=== PATIENT | male | born 1940 | race Caucasian/White ===

== ENCOUNTER 2018-09-10 09:17 | Inpatient (IN) ==
[2018-09-10] MEDS ORDERED: D5 1/2 NS 1000 ML 1,000 ML IV ONE (09:57)
[2018-09-10] MEDS: D5 1/2 NS 1000 ML 1,000 ML IV SCH ×3 (10:27→21:05)
[2018-09-10] MEDS ORDERED: DILAUDID INJ IVP PRN (11:24)
[2018-09-10 11:48] LABS: BASOPHILS # (AUTO) 0.1 X10^3/uL (0.0-0.1); BASOPHILS % (AUTO) 0.7 % (0.2-1.0); EOSINOPHILS % (AUTO) 0.1 % (0.9-2.9); HEMATOCRIT 29.8 % (42.0-54.0); HEMOGLOBIN 9.8 g/dL (13.5-18.0); LYMPHOCYTES # (AUTO) 1.1 X10^3/uL (1.3-2.9); LYMPHOCYTES % (AUTO) 9.4 % (21.0-51.0); MEAN CORPUSCULAR HEMOGLOBIN 27.8 pg (27.0-34.0); MEAN CORPUSCULAR HGB CONC 33.1 g/dL (33.0-35.0); MEAN CORPUSCULAR VOLUME 84.1 fL (80.0-100.0); MEAN PLATELET VOLUME 7.3 fL (7.4-11.0); MONOCYTES # (AUTO) 0.6 x10^3/uL (0.3-0.8); NEUTROPHILS # (AUTO) 9.5 x10^3/uL (2.2-4.8); NEUTROPHILS % (AUTO) 84.8 % (42.0-75.0); PLATELET COUNT 330 X10^3/uL (150.0-450.0); RED BLOOD COUNT 3.54 X10^6/uL (4.7-6.0); RED CELL DISTRIBUTION WIDTH 13.8 % (11.6-16.5); WHITE BLOOD COUNT 11.2 X10^3/uL (3.6-10.0)
[2018-09-10 12:02] VITALS: BMI 27.3
[2018-09-10] MEDS ORDERED: FLUVIRIN IM ONE (12:02)
[2018-09-10] MEDS ORDERED: PREVNAR 13 IM ONE (12:02)
[2018-09-10 12:14] LABS: ALANINE AMINOTRANSFERASE 32 Units/L (12-78); ALBUMIN 2.1 g/dL (3.4-5.0); ALKALINE PHOSPHATASE 207 Units/L (46-116); AMYLASE 25 Units/L (25-115); ASPARTATE AMINO TRANSFERASE 22 Units/L (15-37); BLOOD UREA NITROGEN 14 mg/dL (7-18); CALCIUM 8.1 mg/dL (8.5-10.1); CARBON DIOXIDE 25.9 mmol/L (21-32); CHLORIDE 100 mmol/L (98-107); COR CA(FOR HYPOALB) 9.6 mg/dL (8.5-10.1); COR NA(FOR HYPERGLY) 136 mmol/L (136-145); CREATININE 0.69 mg/dL (0.70-1.30); LIPASE 87 Units/L (73-393); SODIUM 135 mmol/L (136-145); TOTAL PROTEIN 7.7 g/dL (6.4-8.2); eGFR NON BLACK RACES > 60 (>60)
[2018-09-10] MEDS ORDERED: NS 100 ML IV + SPIKE MINIBAG* 100 ML IV ONE ×2 (12:52→21:00)
[2018-09-10] MEDS: FLAGYL IV PREMIX 500 MG BAG 500 MG/100 ML BAG IV SCH ×2 (12:56→20:56)
[2018-09-10] MEDS: PROTONIX INJ 40 MG VIAL IVP SCH (12:56)
[2018-09-10] MEDS: ZOSYN VIAL 3.375 GRAMS IV SCH ×2 (14:17→21:09)
--- NOTE | 2018-09-10 21:17 | CT ---
HISTORY: Liver abscess. Study: CT abdomen with contrast Comparison: CT abdomen/pelvis dated August 06, 2018. Technique: Multiple axial images of the abdomen and pelvis were obtained from the lung bases to the pubic symphysis after the administration of IV contrast. Dose reduction techniques including Automated Exposure Control (AEC) and adjustment of mA and kV were utilized. Findings: The visualized portions of the lung bases are unremarkable. Small hiatal hernia. Stable appearance of a 10.0 x 12.5 x 10.6 cm multi-septated cystic lesion that is centered within the left hepatic lobe. Extensive soft tissue stranding is seen about the liver edge with traces of free fluid. No obvious areas of arterial or delayed enhancement. Again, this likely represents a liver abscess. Remaining liver is unremarkable. The portal vein is patent. The visualized gallbladder, spleen, pancreas, adrenals, and kidneys appear normal. No obvious free air or pathologic lymphadenopathy. The visualized large and small bowel appear unchanged given technique. Vascular calcifications without evidence of aneurysmal dilatation. Degenerative changes of the spine. No aggressive osseous lesions. IMPRESSION: Stable appearance of a 12.5 cm complex left liver lesion likely representing a liver abscess. Reported By:
[2018-09-11] MEDS: FLAGYL IV PREMIX 500 MG BAG 500 MG/100 ML BAG IV SCH ×3 (03:00→20:13)
[2018-09-11] MEDS ORDERED: NS 100 ML IV + SPIKE MINIBAG* 100 ML IV ONE ×3 (04:51→20:12)
[2018-09-11 05:16] LABS: BASOPHILS # (AUTO) 0.1 X10^3/uL (0.0-0.1); BASOPHILS % (AUTO) 0.4 % (0.2-1.0); EOSINOPHILS # (AUTO) 0.1 x10^3/uL (0.0-0.2); EOSINOPHILS % (AUTO) 0.4 % (0.9-2.9); HEMATOCRIT 28.7 % (42.0-54.0); HEMOGLOBIN 9.7 g/dL (13.5-18.0); LYMPHOCYTES # (AUTO) 1.6 X10^3/uL (1.3-2.9); LYMPHOCYTES % (AUTO) 11.7 % (21.0-51.0); MEAN CORPUSCULAR HGB CONC 33.7 g/dL (33.0-35.0); MEAN CORPUSCULAR VOLUME 83.2 fL (80.0-100.0); MEAN PLATELET VOLUME 7.4 fL (7.4-11.0); MONOCYTES # (AUTO) 0.8 x10^3/uL (0.3-0.8); NEUTROPHILS % (AUTO) 81.5 % (42.0-75.0); PLATELET COUNT 344 X10^3/uL (150.0-450.0); RED BLOOD COUNT 3.45 X10^6/uL (4.7-6.0); RED CELL DISTRIBUTION WIDTH 13.7 % (11.6-16.5); WHITE BLOOD COUNT 13.6 X10^3/uL (3.6-10.0)
[2018-09-11] MEDS: D5 1/2 NS 1000 ML 1,000 ML IV SCH ×3 (05:24→20:13)
[2018-09-11] MEDS: ZOSYN VIAL 3.375 GRAMS IV SCH ×3 (05:24→21:49)
[2018-09-11 05:30] LABS: ALANINE AMINOTRANSFERASE 28 Units/L (12-78); ALBUMIN 1.8 g/dL (3.4-5.0); ALKALINE PHOSPHATASE 185 Units/L (46-116); ASPARTATE AMINO TRANSFERASE 21 Units/L (15-37); BLOOD UREA NITROGEN 9 mg/dL (7-18); CALCIUM 7.7 mg/dL (8.5-10.1); CARBON DIOXIDE 25.6 mmol/L (21-32); CHLORIDE 104 mmol/L (98-107); COR CA(FOR HYPOALB) 9.5 mg/dL (8.5-10.1); COR NA(FOR HYPERGLY) 139 mmol/L (136-145); SODIUM 139 mmol/L (136-145); eGFR NON BLACK RACES > 60 (>60)
[2018-09-11] MEDS ORDERED: XYLOCAINE 1 % (PLAIN) ONE (08:39)
[2018-09-11] MEDS: PROTONIX INJ 40 MG VIAL IVP SCH (09:30)
[2018-09-11] MEDS ORDERED: K-RIDER 10 MEQ/NS 100 ML 10 MEQ/100 ML BAG IV PRN (10:14)
[2018-09-11] MEDS ORDERED: MICRO K EXTEN CAP 10 MEQ PO PRN (10:14)
[2018-09-11] MEDS ORDERED: POTASSIUM CHL 60 MEQ/NS 0.45% 500 ML IV PRN (10:14)
[2018-09-11] MEDS ORDERED: KLOR-CON PO PRN (10:14)
[2018-09-11] MEDS ORDERED: POTASSIUM CHL 40 MEQ/NS 0.45% 500 ML IV PRN (10:14)
[2018-09-11] MEDS ORDERED: POTASSIUM CHLORIDE LIQ 20 MEQ UDC PO PRN (10:14)
[2018-09-11] MEDS ORDERED: MAGNESIUM SULFATE 1 GRAM/100 mL PREMIX 1 GM/100 ML BAG IV PRN (10:14)
--- NOTE | 2018-09-11 11:10 | DR.PROGNOT ---
Hospital Progress Notes - Progress Note for Day of: Progress Note Date: 09/11/18 - Chief Complaint Chief Complaint: feeling better today , no abdomnal pain , no nausea or vomiting . had liver abscess drained and sent for C&S and cytology.. afebrile . - Past Medical Family Social History Past Med/Fam/Surg Hx: No changes since H&P Allergies: Allergies No Known Drug Allergies Allergy (Verified 09/10/18 09:40) - Review Of Systems ROS: No change since H&P - Vital Signs Vital Signs: Temperature 99.1 F Pulse Rate [Right Brachial] 85 Respiratory Rate 18 Blood Pressure [Right Arm] 113/56 O2 Sat by Pulse Oximetry 96 - Physical Exam Oriented: Normal Eyes: Normal Ear: Normal Nose: Normal Throat: Normal Cardiovascular: Normal : Normal GI:Auscultation: Normal GI:Palpation: Normal GI: Tenderness: Diffuse, LLQ, Epigastric Skin: Normal Musculoskeletal: Normal Psychiatric: Normal Affect: Normal Speech Pattern: Clear, Appropriate - Laboratory and Diagnostics Result Diagrams: 09/11/18 04:27 09/11/18 04:27 Labs: 09/11/18 09:05 Ascities Fluid Gram Stain - Final Laboratory WBC 13.6 X10^3/uL (3.6-10.0) H 09/11/18 04:27 RBC 3.45 X10^6/uL (4.7-6.0) L 09/11/18 04:27 Hgb 9.7 g/dL (13.5-18.0) L 09/11/18 04:27 Hct 28.7 % (42.0-54.0) L 09/11/18 04:27 MCV 83.2 fL (80.0-100.0) 09/11/18 04:27 MCH 28.0 pg (27.0-34.0) 09/11/18 04:27 MCHC 33.7 g/dL (33.0-35.0) 09/11/18 04:27 RDW 13.7 % (11.6-16.5) 09/11/18 04:27 Plt Count 344 X10^3/uL (150.0-450.0) 09/11/18 04:27 MPV 7.4 fL (7.4-11.0) 09/11/18 04:27 Neut % (Auto) 81.5 % (42.0-75.0) H 09/11/18 04:27 Lymph % (Auto) 11.7 % (21.0-51.0) L 09/11/18 04:27 [place] % (Auto) 6.0 % (0.0-13.0) 09/11/18 04:27 Eos % (Auto) 0.4 % (0.9-2.9) L 09/11/18 04:27 Baso % (Auto) 0.4 % (0.2-1.0) 09/11/18 04:27 Neut # (Auto) 11.0 x10^3/uL (2.2-4.8) H 09/11/18 04:27 Lymph # (Auto) 1.6 X10^3/uL (1.3-2.9) 09/11/18 04:27 [place] # (Auto) 0.8 x10^3/uL (0.3-0.8) 09/11/18 04:27 Eos # (Auto) 0.1 x10^3/uL (0.0-0.2) 09/11/18 04:27 Baso # (Auto) 0.1 X10^3/uL (0.0-0.1) 09/11/18 04:27 Absolute Nucleated RBC 0.0 /100WBC 09/11/18 04:27 INR Target Range - 09/10/18 18:36 INR 1.24 (0.8-1.3) 09/10/18 18:36 APTT 29.5 SECONDS (22.9-36.5) 09/10/18 18:36 PTT Comment - 09/10/18 18:36 Sodium 139 mmol/L (136-145) 09/11/18 04:27 Corrected Sodium 139 mmol/L (136-145) 09/11/18 04:27 Potassium 3.5 mmol/L (3.5-5.1) 09/11/18 04:27 Chloride 104 mmol/L (98-107) 09/11/18 04:27 Carbon Dioxide 25.6 mmol/L (21-32) 09/11/18 04:27 BUN 9 mg/dL (7-18) 09/11/18 04:27 Creatinine 0.80 mg/dL (0.70-1.30) 09/11/18 04:27 Est GFR (MDRD) Af Amer > 60 (>60) 09/11/18 04:27 Est GFR (MDRD) Non-Af > 60 (>60) 09/11/18 04:27 Glucose 111 mg/dL (65-99) H 09/11/18 04:27 Calcium 7.7 mg/dL (8.5-10.1) L 09/11/18 04:27 Corrected Calcium 9.5 mg/dL (8.5-10.1) 09/11/18 04:27 Magnesium 2.0 mg/dL (1.7-2.9) 09/11/18 04:27 Total Bilirubin 0.40 mg/dL (0.2-1.0) 09/11/18 04:27 AST 21 Units/L (15-37) 09/11/18 04:27 ALT 28 Units/L (12-78) 09/11/18 04:27 Alkaline Phosphatase 185 Units/L (46-116) H 09/11/18 04:27 Total Protein 7.0 g/dL (6.4-8.2) 09/11/18 04:27 Albumin 1.8 g/dL (3.4-5.0) L 09/11/18 04:27 Globulin 5.2 g/dL (2.5-4.5) H 09/11/18 04:27 Albumin/Globulin Ratio 0.3 Ratio (1.1-2.1) L 09/11/18 04:27 Amylase 25 Units/L (25-115) 09/10/18 11:36 Lipase 87 Units/L (73-393) 09/10/18 11:36 Cytology Specimen To follow 09/11/18 09:05 - Assessment and Plan 1: Lt liver lobe abscess .( drained under CT guidance ). on IV ATB . 2: Large partially incarcerated Rt inguinal hernia. to arrange for future repair as OP 3: BPH , needs further W/U to r/o malignancy. 4: COPD .. awaiting cytolpgy and C&S report . possible D/C in AM
[2018-09-11] MEDS: K-DUR TAB 20 MEQ PO PRN ×2 (14:04→17:16)
[2018-09-11] MEDS: FLOMAX PO SCH (14:04)
[2018-09-11] MEDS ORDERED: SINGULAIR TAB 10 MG PO SCH (21:00)
[2018-09-12] MEDS: FLAGYL IV PREMIX 500 MG BAG 500 MG/100 ML BAG IV SCH (03:50)
[2018-09-12] MEDS: D5 1/2 NS 1000 ML 1,000 ML IV SCH (03:50)
[2018-09-12] MEDS ORDERED: NS 100 ML IV + SPIKE MINIBAG* 100 ML IV ONE (05:07)
[2018-09-12] MEDS: ZOSYN VIAL 3.375 GRAMS IV SCH (05:09)
[2018-09-12 05:23] LABS: BASOPHILS # (AUTO) 0.1 X10^3/uL (0.0-0.1); BASOPHILS % (AUTO) 0.6 % (0.2-1.0); EOSINOPHILS # (AUTO) 0.2 x10^3/uL (0.0-0.2); EOSINOPHILS % (AUTO) 2.2 % (0.9-2.9); HEMATOCRIT 31.5 % (42.0-54.0); HEMOGLOBIN 10.4 g/dL (13.5-18.0); LYMPHOCYTES # (AUTO) 1.7 X10^3/uL (1.3-2.9); LYMPHOCYTES % (AUTO) 16.9 % (21.0-51.0); MEAN CORPUSCULAR HEMOGLOBIN 27.4 pg (27.0-34.0); MEAN CORPUSCULAR HGB CONC 32.9 g/dL (33.0-35.0); MEAN CORPUSCULAR VOLUME 83.4 fL (80.0-100.0); MEAN PLATELET VOLUME 7.3 fL (7.4-11.0); MONOCYTES # (AUTO) 0.9 x10^3/uL (0.3-0.8); MONOCYTES % (AUTO) 9.3 % (0.0-13.0); PLATELET COUNT 336 X10^3/uL (150.0-450.0); RED BLOOD COUNT 3.78 X10^6/uL (4.7-6.0); RED CELL DISTRIBUTION WIDTH 13.9 % (11.6-16.5); WHITE BLOOD COUNT 9.9 X10^3/uL (3.6-10.0)
[2018-09-12 05:33] LABS: ALANINE AMINOTRANSFERASE 24 Units/L (12-78); ALBUMIN 1.9 g/dL (3.4-5.0); ALKALINE PHOSPHATASE 191 Units/L (46-116); ASPARTATE AMINO TRANSFERASE 19 Units/L (15-37); BLOOD UREA NITROGEN 9 mg/dL (7-18); CARBON DIOXIDE 25.4 mmol/L (21-32); CHLORIDE 104 mmol/L (98-107); COR CA(FOR HYPOALB) 9.7 mg/dL (8.5-10.1); CREATININE 0.85 mg/dL (0.70-1.30); SODIUM 138 mmol/L (136-145); TOTAL PROTEIN 7.2 g/dL (6.4-8.2); eGFR NON BLACK RACES > 60 (>60)
[2018-09-12] MEDS: PROTONIX INJ 40 MG VIAL IVP SCH (08:26)
[2018-09-12] MEDS: FLOMAX PO SCH (08:26)
--- NOTE | 2018-09-12 08:29 | CT ---
HISTORY: Left hepatic lobe abscess Study: CT guided hepatic abscess aspiration Comparison: September 10, 2018 and August 06, 2018 Procedure: The risks, benefits, and alternatives were discussed. Informed consent was obtained. Time out was performed. CT guidance was utilized to localize optimal percutaneous aspiration site in the medial segment left hepatic lobe. The larger fluid collection is along the dome of the liver near the diaphragm and could not be directly accessed. Therefore, a smaller more inferior fluid collection was chosen for aspiration for diagnostic purposes. Subsequently, the patient was prepped, draped, and anesthetized in the usual sterile fashion, and an 18 gauge spinal needle was advanced to the region of interest. Approximately 20 cc of purulent fluid was aspirated and sent to the lab for specified studies. The patient tolerated the procedure well without immediate postprocedure complication. Note is made of retained contrast in the renal collecting system suggesting renal dysfunction. IMPRESSION: Technically successful CT-guided left hepatic lobe diagnostic abscess aspiration. Persistent contrast in the renal collecting systems suggesting some degree of renal dysfunction. Reported By:
[2018-09-12 09:28] VITALS: BP 125/66
== END 2018-09-12 11:05 | disposition home or self-care (01) | DRG 442 ==
LOC: MED/SURG 09:43
PROVIDERS: ADMIT Surgery; ATTEND Surgery
DX: D64.89 Other specified anemias; R10.84 Generalized abdominal pain; R06.02 Shortness of breath; E88.09 Other disorders of plasma-protein metabolism, not elsewhere classified; N40.0 Benign prostatic hyperplasia without lower urinary tract symptoms; K76.89 Other specified diseases of liver; J44.9 Chronic obstructive pulmonary disease, unspecified; K40.30 Unilateral inguinal hernia, with obstruction, without gangrene, not specified as recurrent; K75.0 Abscess of liver; R97.20 Elevated prostate specific antigen [PSA]
CPT/HCPCS: 36415; 74160; 76705; 77012; 80053; 82150; 83690; 83735; 84132; 85025; 85610; 85730; 87070; 87077; 87186; 87205; 88112; 88305; 90686; 93005; 93010; A4222; C9113; S0030; 90670; J2543; J7050; S5010

== ENCOUNTER 2018-09-19 10:11 | Observation (INO) ==
[2018-09-19] MEDS ORDERED: PROTONIX INJ 40 MG VIAL IVP ONE (10:29)
[2018-09-19] MEDS ORDERED: LEVAQUIN PREMIX IV 500 MG 500 MG/100 ML BAG IV ONE (10:31)
[2018-09-19] MEDS ORDERED: D5 1/2 NS 1000 ML 1,000 ML IV ONE (10:57)
[2018-09-19] MEDS: D5 1/2 NS 1000 ML 1,000 ML IV SCH ×2 (11:13→22:56)
[2018-09-19 11:52] VITALS: BMI 23.5
[2018-09-19] MEDS ORDERED: BACITRACIN VIAL ONE (13:56)
[2018-09-19] MEDS ORDERED: BACTROBAN TOPICAL OINT ONE (13:56)
[2018-09-19] MEDS ORDERED: FENTANYL INJ 250 mcg ONE (15:06)
[2018-09-19] MEDS ORDERED: SUPRANE IN ONE (15:56)
[2018-09-19] MEDS ORDERED: DIPRIVAN VIAL ONE ×2 (15:56→16:01)
[2018-09-19] MEDS ORDERED: ROBINUL ONE (15:56)
[2018-09-19] MEDS ORDERED: NORCURON INJ 10 MG VIAL ONE (15:56)
[2018-09-19] MEDS ORDERED: NEOSTIGMINE INJ ONE (15:56)
[2018-09-19] MEDS ORDERED: VERSED ONE ×2 (15:56→16:01)
[2018-09-19] MEDS ORDERED: ZOFRAN INJ 4 MG VIAL ONE (15:56)
[2018-09-19] MEDS ORDERED: EPHEDRINE SULFATE INJ ONE (15:56)
[2018-09-19] MEDS ORDERED: LTA KIT LIDOCAINE 4% ONE (15:56)
[2018-09-19] MEDS ORDERED: QUELICIN (OR ANECTINE) ONE (15:56)
[2018-09-19] MEDS ORDERED: LR 1000 ML IV 1,000 ML IV ONE (16:54)
[2018-09-19] MEDS ORDERED: REGLAN INJ 10 MG VIAL IVP PRN (17:35)
[2018-09-19] MEDS ORDERED: BENADRYL INJ 50 MG VIAL IVP PRN (17:35)
[2018-09-19] MEDS ORDERED: DILAUDID INJ IVP PRN (17:35)
[2018-09-19] MEDS ORDERED: PHENERGAN INJ 25 MG IVP PRN (17:35)
[2018-09-19] MEDS ORDERED: ZOFRAN INJ 4 MG VIAL IVP PRN (17:35)
[2018-09-19] MEDS: DILAUDID INJ IVP PRN ×2 (18:23→21:20)
[2018-09-19] MEDS: PROVENTIL NEB TX 0.083% 2.5MG/ 3ML NEB PRN (21:09)
[2018-09-19] MEDS: PULMICORT NEB TX 0.5 MG NEB SCH (21:09)
[2018-09-20] MEDS: DILAUDID INJ IVP PRN ×4 (00:13→23:16)
[2018-09-20] MEDS: D5 1/2 NS 1000 ML 1,000 ML IV SCH ×3 (03:29→18:31)
--- NOTE | 2018-09-20 06:12 | RAD ---
History: Urinary retention and abdominal pain and distention Study: KUB Comparison: July 30 Findings: There is a catheter in the urinary bladder. Surgical denisse overlie the right groin. The bowel gas pattern appears unremarkable there are unchanged phleboliths in the pelvis. Impression: No acute disease Reported By:
[2018-09-20] MEDS ORDERED: LR 1000 ML IV 1,000 ML IV ONE (07:04)
[2018-09-20] MEDS ORDERED: ANCEF VIAL 1 GRAM ONE (07:04)
[2018-09-20] MEDS ORDERED: XYLOCAINE 1 % (PLAIN) ONE (07:32)
--- NOTE | 2018-09-20 08:04 | DR.PROGNOT ---
Hospital Progress Notes - Progress Note for Day of: Progress Note Date: 09/20/18 - Chief Complaint Chief Complaint: Pt was unable to void last night . several attempts by the nurses to insert heredia cath were ucsuccessful . Pt was taken to the OR for placement of supra pubic catheter . Attempted placement of Coude catheter was successful and large amount of urine was drained .no need for the suprapubic catheter. Pt is feeling much better now - Past Medical Family Social History Past Med/Fam/Surg Hx: No changes since H&P Allergies: Allergies No Known Drug Allergies Allergy (Verified 09/10/18 09:40) - Review Of Systems ROS: No change since H&P - Vital Signs Vital Signs: Temperature 98.5 F Pulse Rate [Brachial] 87 Pulse Rate 84 Respiratory Rate 18 Blood Pressure [Left Arm] 152/72 Blood Pressure [Right Arm] 116/47 Blood Pressure 139/68 O2 Sat by Pulse Oximetry 95 - Physical Exam Oriented: Normal Eyes: Normal Ear: Normal Nose: Normal Throat: Normal Cardiovascular: Normal : Normal GI:Auscultation: Normal GI:Palpation: Normal GI: Tenderness: Other (incisional tenderness , soft abdomen now .Bs+) Mood Description: Calm Speech Pattern: Clear, Appropriate - Laboratory and Diagnostics Labs: Laboratory Tissue Pathology To follow 09/19/18 17:00 - Assessment and Plan 1: PO repair of incarcerated Rt inguinal hernia ,. acute urinary retention . will keep the catheter for now and recheck later on today .
[2018-09-20] MEDS: PULMICORT NEB TX 0.5 MG NEB SCH ×2 (08:45→21:27)
[2018-09-20] MEDS: PROVENTIL NEB TX 0.083% 2.5MG/ 3ML NEB PRN ×2 (08:45→16:20)
[2018-09-20] MEDS ORDERED: NS IRRIGATION 500 ML IR ONE (14:16)
[2018-09-20] MEDS ORDERED: PHENERGAN INJ 25 MG IV PRN (19:58)
[2018-09-21] MEDS: D5 1/2 NS 1000 ML 1,000 ML IV SCH ×3 (03:24→19:49)
[2018-09-21] MEDS: PROVENTIL NEB TX 0.083% 2.5MG/ 3ML NEB PRN ×2 (09:05→21:18)
[2018-09-21] MEDS: PULMICORT NEB TX 0.5 MG NEB SCH ×2 (09:06→21:18)
[2018-09-21] MEDS: PERCOCET TAB 5/325 MG PO PRN ×3 (10:37→21:22)
--- NOTE | 2018-09-21 11:54 | DR.PROGNOT ---
Hospital Progress Notes - Progress Note for Day of: Progress Note Date: 09/21/18 - Chief Complaint Chief Complaint: still having bleeding around the heredia catheter ,but the urine is clear. c/o incisional pain . no nausea or vomiting . - Past Medical Family Social History Past Med/Fam/Surg Hx: No changes since H&P Allergies: Allergies No Known Drug Allergies Allergy (Verified 09/10/18 09:40) - Review Of Systems ROS: No change since H&P - Vital Signs Vital Signs: Temperature 98.8 F Pulse Rate [Brachial] 84 Pulse Rate 77 Respiratory Rate 18 Blood Pressure [Left Arm] 129/64 Blood Pressure [Right Arm] 116/47 Blood Pressure 139/68 O2 Sat by Pulse Oximetry 96 - Physical Exam Oriented: Normal Eyes: Normal Ear: Normal Nose: Normal Throat: Normal Cardiovascular: Normal : Hematuria (bleeding around the catheter although the urine in the bag is clear .) GI:Auscultation: Normal GI:Palpation: Normal GI: Tenderness: Other (incisional tenderness , soft abdomen now .Bs+) Mood Description: Calm Speech Pattern: Clear, Appropriate - Laboratory and Diagnostics Labs: Laboratory Tissue Pathology To follow 09/19/18 17:00 - Assessment and Plan 1: PO repair of incarcerated Rt inguinal hernia ,. acute urinary retention . hematuria from urethral irritation from attempted catheter placements. will keep the catheter today . OOB , advance diet
[2018-09-21 12:55] LABS: BASOPHILS % (AUTO) 0.4 % (0.2-1.0); EOSINOPHILS # (AUTO) 0.1 x10^3/uL (0.0-0.2); EOSINOPHILS % (AUTO) 1.3 % (0.9-2.9); HEMATOCRIT 31.3 % (42.0-54.0); HEMOGLOBIN 10.5 g/dL (13.5-18.0); LYMPHOCYTES # (AUTO) 1.2 X10^3/uL (1.3-2.9); LYMPHOCYTES % (AUTO) 12.8 % (21.0-51.0); MEAN CORPUSCULAR HGB CONC 33.6 g/dL (33.0-35.0); MEAN CORPUSCULAR VOLUME 83.2 fL (80.0-100.0); MEAN PLATELET VOLUME 7.5 fL (7.4-11.0); MONOCYTES # (AUTO) 0.8 x10^3/uL (0.3-0.8); MONOCYTES % (AUTO) 8.8 % (0.0-13.0); NEUTROPHILS # (AUTO) 7.3 x10^3/uL (2.2-4.8); NEUTROPHILS % (AUTO) 76.7 % (42.0-75.0); PLATELET COUNT 254 X10^3/uL (150.0-450.0); RED BLOOD COUNT 3.76 X10^6/uL (4.7-6.0); RED CELL DISTRIBUTION WIDTH 14.9 % (11.6-16.5); WHITE BLOOD COUNT 9.5 X10^3/uL (3.6-10.0)
[2018-09-21 13:05] LABS: ALANINE AMINOTRANSFERASE 16 Units/L (12-78); ALBUMIN 1.8 g/dL (3.4-5.0); ALKALINE PHOSPHATASE 119 Units/L (46-116); ASPARTATE AMINO TRANSFERASE 21 Units/L (15-37); BLOOD UREA NITROGEN 8 mg/dL (7-18); CALCIUM 7.9 mg/dL (8.5-10.1); CARBON DIOXIDE 29.8 mmol/L (21-32); CHLORIDE 101 mmol/L (98-107); COR CA(FOR HYPOALB) 9.7 mg/dL (8.5-10.1); COR NA(FOR HYPERGLY) 136 mmol/L (136-145); CREATININE 0.67 mg/dL (0.70-1.30); SODIUM 136 mmol/L (136-145); eGFR NON BLACK RACES > 60 (>60)
[2018-09-21 15:37] LABS: BILIRUBIN,URINE NEGATIVE (NEGATIVE); BLOOD/HEMOGLOBIN,URINE 3+ (NEGATIVE); GLUCOSE, URINE NEGATIVE (NEGATIVE); KETONES,URINE NEGATIVE (NEGATIVE); LEUKOCYTE ESTERASE ,URINE 1+ (NEGATIVE); NITRITES,URINE NEGATIVE (NEGATIVE); PROTEIN,URINE NEGATIVE (NEGATIVE); UROBILINOGEN,URINE NORMAL (NORMAL)
[2018-09-21 15:40] LABS: APPEARANCE,URINE CLEAR (CLEAR); COLOR,URINE YELLOW (YELLOW)
[2018-09-21 15:43] LABS: BACTERIA,URINE NEGATIVE /HPF (NEGATIVE); RBC,URINE 0-2 /HPF (NONE SEEN); SQUAMOUS EPITHELIAL CELL,UR RARE /HPF (NEGATIVE)
[2018-09-21] MEDS: COLACE CAP 100 MG PO SCH (21:22)
[2018-09-22] MEDS: D5 1/2 NS 1000 ML 1,000 ML IV SCH ×3 (02:32→20:01)
[2018-09-22] MEDS: MILK OF MAGNESIA PO SCH ×2 (08:32→08:59)
[2018-09-22] MEDS: PERCOCET TAB 5/325 MG PO PRN ×3 (09:03→22:10)
[2018-09-22] MEDS: PULMICORT NEB TX 0.5 MG NEB SCH ×2 (09:08→21:47)
[2018-09-22] MEDS ORDERED: DILAUDID INJ ONE (18:08)
[2018-09-22] MEDS ORDERED: DILAUDID INJ IVP ONE (18:08)
[2018-09-22] MEDS ORDERED: STERILE WATER IRRIGATION IR ONE (18:18)
--- NOTE | 2018-09-22 19:10 | DR.PROGNOT ---
Hospital Progress Notes - Progress Note for Day of: Progress Note Date: 09/22/18 - Chief Complaint Chief Complaint: heredia catheter was removed early on . pt was unable to void after several attempts ,. New 14 f heredia catheter was inserted with some dificulty . urine was clear . will keep the catheter in place and d/c pt in am with referral to Urologist .. - Past Medical Family Social History Past Med/Fam/Surg Hx: No changes since H&P Allergies: Allergies No Known Drug Allergies Allergy (Verified 09/10/18 09:40) - Review Of Systems ROS: No change since H&P - Vital Signs Vital Signs: Temperature 98.3 F Pulse Rate [Brachial] 81 Pulse Rate 74 Respiratory Rate 18 Blood Pressure [Left Arm] 170/84 Blood Pressure [Right Arm] 116/47 Blood Pressure 139/68 O2 Sat by Pulse Oximetry 96 - Physical Exam Oriented: Normal Eyes: Normal Ear: Normal Nose: Normal Throat: Normal Cardiovascular: Normal : Hematuria ( urine in the bag is clear .moderate edema of the penis and scrotum ) GI:Auscultation: Normal GI:Palpation: Normal GI: Tenderness: Other (incisional tenderness , soft abdomen now .Bs+) Mood Description: Calm Speech Pattern: Clear, Appropriate - Laboratory and Diagnostics Result Diagrams: 09/21/18 12:36 09/21/18 12:36 Labs: Laboratory WBC 9.5 X10^3/uL (3.6-10.0) 09/21/18 12:36 RBC 3.76 X10^6/uL (4.7-6.0) L 09/21/18 12:36 Hgb 10.5 g/dL (13.5-18.0) L 09/21/18 12:36 Hct 31.3 % (42.0-54.0) L 09/21/18 12:36 MCV 83.2 fL (80.0-100.0) 09/21/18 12:36 MCH 28.0 pg (27.0-34.0) 09/21/18 12:36 MCHC 33.6 g/dL (33.0-35.0) 09/21/18 12:36 RDW 14.9 % (11.6-16.5) 09/21/18 12:36 Plt Count 254 X10^3/uL (150.0-450.0) 09/21/18 12:36 MPV 7.5 fL (7.4-11.0) 09/21/18 12:36 Neut % (Auto) 76.7 % (42.0-75.0) H 09/21/18 12:36 Lymph % (Auto) 12.8 % (21.0-51.0) L 09/21/18 12:36 [place] % (Auto) 8.8 % (0.0-13.0) 09/21/18 12:36 Eos % (Auto) 1.3 % (0.9-2.9) 09/21/18 12:36 Baso % (Auto) 0.4 % (0.2-1.0) 09/21/18 12:36 Neut # (Auto) 7.3 x10^3/uL (2.2-4.8) H 09/21/18 12:36 Lymph # (Auto) 1.2 X10^3/uL (1.3-2.9) L 09/21/18 12:36 [place] # (Auto) 0.8 x10^3/uL (0.3-0.8) 09/21/18 12:36 Eos # (Auto) 0.1 x10^3/uL (0.0-0.2) 09/21/18 12:36 Baso # (Auto) 0.0 X10^3/uL (0.0-0.1) 09/21/18 12:36 Absolute Nucleated RBC 0.0 /100WBC 09/21/18 12:36 Sodium 136 mmol/L (136-145) 09/21/18 12:36 Corrected Sodium 136 mmol/L (136-145) 09/21/18 12:36 Potassium 3.8 mmol/L (3.5-5.1) 09/21/18 12:36 Chloride 101 mmol/L (98-107) 09/21/18 12:36 Carbon Dioxide 29.8 mmol/L (21-32) 09/21/18 12:36 BUN 8 mg/dL (7-18) 09/21/18 12:36 Creatinine 0.67 mg/dL (0.70-1.30) L 09/21/18 12:36 Est GFR (MDRD) Af Amer > 60 (>60) 09/21/18 12:36 Est GFR (MDRD) Non-Af > 60 (>60) 09/21/18 12:36 Glucose 120 mg/dL (65-99) H 09/21/18 12:36 Calcium 7.9 mg/dL (8.5-10.1) L 09/21/18 12:36 Corrected Calcium 9.7 mg/dL (8.5-10.1) 09/21/18 12:36 Total Bilirubin 0.40 mg/dL (0.2-1.0) 09/21/18 12:36 AST 21 Units/L (15-37) 09/21/18 12:36 ALT 16 Units/L (12-78) 09/21/18 12:36 Alkaline Phosphatase 119 Units/L (46-116) H 09/21/18 12:36 Total Protein 7.0 g/dL (6.4-8.2) 09/21/18 12:36 Albumin 1.8 g/dL (3.4-5.0) L 09/21/18 12:36 Globulin 5.2 g/dL (2.5-4.5) H 09/21/18 12:36 Albumin/Globulin Ratio 0.3 Ratio (1.1-2.1) L 09/21/18 12:36 Specimen Type Catherized urine 09/21/18 15:25 Urine Color Yellow (YELLOW) 09/21/18 15:25 Urine Appearance Clear (CLEAR) 09/21/18 15:25 Urine pH 6.0 (5.0 - 8.0) 09/21/18 15:25 Ur Specific [place] 1.010 (1.000-1.030) 09/21/18 15:25 Urine Protein Negative (NEGATIVE) 09/21/18 15:25 Urine Glucose (UA) Negative (NEGATIVE) 09/21/18 15:25 Urine Ketones Negative (NEGATIVE) 09/21/18 15:25 Urine Occult Blood 3+ (NEGATIVE) 09/21/18 15:25 Urine Nitrite Negative (NEGATIVE) 09/21/18 15:25 Urine Bilirubin Negative (NEGATIVE) 09/21/18 15:25 Urine Urobilinogen Normal (NORMAL) 09/21/18 15:25 Ur Leukocyte Esterase 1+ (NEGATIVE) 09/21/18 15:25 Urine RBC 0-2 /HPF (NONE SEEN) 09/21/18 15:25 Urine WBC 0-2 /HPF (NONE SEEN) 09/21/18 15:25 Ur Squamous Epith Cells Rare /HPF (NEGATIVE) 09/21/18 15:25 Urine Bacteria Negative /HPF (NEGATIVE) 09/21/18 15:25 Ur Culture Indicated? No/not indicated 09/21/18 15:25 Tissue Pathology To follow 09/19/18 17:00 - Assessment and Plan 1: PO repair of incarcerated Rt inguinal hernia ,. acute urinary retention . another heredia catheter was reinserted . will keep it in place and refere to urologist ..
[2018-09-22] MEDS: COLACE CAP 100 MG PO SCH (21:22)
[2018-09-23] MEDS: D5 1/2 NS 1000 ML 1,000 ML IV SCH (02:02)
[2018-09-23] MEDS: PERCOCET TAB 5/325 MG PO PRN (07:15)
[2018-09-23] MEDS: MILK OF MAGNESIA PO SCH (09:16)
[2018-09-23] MEDS: PROVENTIL NEB TX 0.083% 2.5MG/ 3ML NEB PRN (09:30)
[2018-09-23] MEDS: PULMICORT NEB TX 0.5 MG NEB SCH (09:30)
[2018-09-23 12:07] VITALS: BP 146/65
== END 2018-09-23 14:45 | disposition home or self-care (01) ==
LOC: OBS → MED/SURG 09-20 15:51
PROVIDERS: ADMIT Surgery; ATTEND Surgery
DX: R05 Cough; R33.8 Other retention of urine; D64.9 Anemia, unspecified; K40.30 Unilateral inguinal hernia, with obstruction, without gangrene, not specified as recurrent; K75.0 Abscess of liver; J44.9 Chronic obstructive pulmonary disease, unspecified
CPT/HCPCS: 36415; 74000; 74018; 80053; 81001; 85025; 88302; 94640; 94760; 96367; 96374; 97162; 97167; 99100; A4216; A4217; A4222; C9113; G0378; J0330; J0690; J1170; J1956; J2250; J2405; J2550; J2704; J2710; J3010; J3490; J7120; J7613; J7626; S5010